=== PATIENT | female | born 1960 | race Caucasian/White ===

== ENCOUNTER 2017-01-02 13:56 | Emergency (ER) | payer OTHER ==
[~2017-01-02] VITALS: Ht 167.6 cm; Wt 81.7 kg
[~2017-01-02 13:56] MED LIST: ARIP1TAB46 PO; PROM25SU8 PO; PROZ20CA11 PO; RANI150 PO; SUCR1TAB PO
[2017-01-02 13:58] VITALS: BP_DIAS 159; PULSE 96; RESP 16; TEMP 98.8; O2SAT 99
[2017-01-02] MEDS ORDERED: ABIL5TAB6 PO (14:14)
[2017-01-02] MEDS ORDERED: PROZ40CA PO (14:14)
[2017-01-02] MEDS ORDERED: ADDE30TA PO (14:14)
[2017-01-02] MEDS ORDERED: LORA-474 PO (14:14)
[2017-01-02 14:26] LABS: BLOOD, URINE LARGE (NEG); KETONE, URINE NEG (NEG); NITRITE,URINE NEG (NEG)
--- NOTE | 2017-01-02 14:29 | PD ---
HPI Chief Complaint: Complaint Time Seen by Provider: 14:15 Travel History International Travel<30 days: No Contact w/Intl Traveler<30days: No Traveled to known affect area: No History of Present Illness HPI 56-year-old female presents to the emergency room for evaluation of 2 separate complaints. First complaint is tailbone pain that has been ongoing for the past 4 days. Tailbone pain started after she slammed her tailbone into the sink faucet while having sex. Since then she has had extreme pain worse with ambulation and sitting. Pain has made it difficult for her to perform activities of daily living. She has been taking Tylenol without significant relief. She denies radiation or paresthesias. Second complaint is dysuria, urgency, and frequency for the past week. Patient states at first she thought it was a yeast infection and was trying over-the- counter medications but it was not relieving her symptoms. She denies any vaginal discharge. She reports excruciating pain during urination. Reports chills and nausea. Denies fever, flank pain, and vomiting. She has not been doing anything for the symptoms. Denies chronic medical conditions. Takes medication for depression. COUNT INCLUDES THE [facility] Past Medical History ADD: Yes Asthma: No Blood Disorders: No Depression: Yes Heart Rhythm Problems: No Cancer: No Cardiovascular Problems: No High Cholesterol: Yes Chest Pain: No Congestive Heart Failure: No COPD: No Diabetes: No Endocrine: No Gastrointestinal Disorders: Yes Genitourinary: Yes Hypertension: No Immune Disorder: No Musculoskeletal: Yes (chronic back pain) Neurologic: No Psychiatric: Yes Respiratory: No Integumentary: Yes (ACME) Sleep Apnea: No Thyroid Disease: No ?: Not Past Surgical History Section: Yes Gynecologic Surgery: Yes (partial hysterectomy 2002) Hysterectomy: Yes Other Surgery: Yes (CEASARN,PARTIAL HYTERECTOMY, LAMI) Social History Alcohol Use: Yes (OCCASSIONAL) Tobacco Use: Yes (1 PPD ) Substance Use: Yes Allergies-Medications (Allergen,Severity, Reaction): Coded Allergies: Cipro (Verified Allergy, Severe, Hives, 01/02/17) Penicillin (Verified Allergy, Mild, 01/02/17) PT DOESNT REALLY HAVE REACTION/GETS YEAST INFECTION,NEED TO DELETE Codeine (Verified Adverse Reaction, Severe, Nausea/Vomiting, 01/02/17) Reported Meds & Prescriptions Reported Meds & Active Scripts Active Macrobid (Nitrofurantoin Monoh/Nitrofur Macro) 100 Mg Cap 100 Mg PO BID 7 Days Reported Ativan (Lorazepam) 1 Mg Tab 1 Mg PO DAILY PRN Abilify (Aripiprazole) 5 Mg Tab 5 Mg PO DAILY Adderall (Amphetamine-Dextroamphetamine) 30 Mg Tab 30 Mg PO DAILY Avoid late evening doses. Space doses at least 4 to 6 hours if more than once/day dosing. Prozac (Fluoxetine HCl) 40 Mg Cap 40 Mg PO DAILY Review of Systems Except as stated in HPI: all other systems reviewed are Neg Physical Exam Narrative GENERAL: Well-nourished, obese female in no acute distress. Afebrile. Ambulatory. SKIN: Focused skin assessment warm/dry. No erythema or ecchymosis. HEAD: Normocephalic. EYES: No scleral icterus. No injection or drainage. NECK: Supple, trachea midline. No JVD or lymphadenopathy. CARDIOVASCULAR: Regular rate and rhythm without murmurs, gallops, or rubs. RESPIRATORY: Breath sounds equal bilaterally. No accessory muscle use. GASTROINTESTINAL: Abdomen soft, non-tender, nondistended. No pelvic tenderness. No CVA tenderness. BACK: No rash. There is moderate tenderness on palpation of the coccyx. No obvious deformity. Data Data Last Documented VS Vital Signs Date Time Temp Pulse Resp B/P Pulse Ox O2 Delivery O2 Flow Rate FiO2 01/02/17 13:58 98.8 96 16 /159 99 Orders Urinalysis - C+S If Indicated (01/02/17 14:05) Ketorolac Inj (Toradol Inj) (01/02/17 15:00) Urine Culture (01/02/17 14:15) Labs Laboratory Tests Test 01/02/17 14:15 Urine Collection Type CLEAN CATCH Urine Color YELLOW Urine Turbidity CLOUDY Urine pH 6.0 Urine Specific Aubrey GREATER THAN 1.035 Urine Protein TRACE mg/dL Urine Glucose (UA) 1000 OR GREATER mg/dL Urine Ketones NEG mg/dL Urine Occult Blood LARGE Urine Nitrite NEG Urine Bilirubin NEG Urine Leukocyte Esterase SMALL Urine WBC INNUM /hpf Urine WBC Clumps FEW Urine Squamous Epithelial 0-3 /hpf Cells Urine Bacteria FEW /hpf Microscopic Urinalysis Comment CULTURE INDICATED MDM Medical Decision Making Medical Screen Exam Complete: Yes Emergency Medical Condition: Yes Medical Record Reviewed: Yes Differential Diagnosis Coxodynia versus fracture versus contusion versus urinary tract infection versus STD Narrative Course 56-year-old female presents to the emergency room for evaluation of 2 complaints. First complaint is coccyx pain for 4 days. Second complaint is dysuria, urgency, and frequency for 1 week. There is tenderness to palpation of the coccyx but no obvious deformity, edema, or ecchymosis. Patient was informed that x-rays will not change the treatment and agreed to proceed without them. She was given Toradol for pain. She has no abdominal pain, pelvic tenderness, or CVA tenderness. Vital signs stable. UA shows evidence of urinary tract infection. Patient discharged with Macrobid and Pyridium. Told to follow-up the primary care physician or return for worsening symptoms. She understands and agrees to plan. Diagnosis Primary Impression: Urinary tract infection Qualified Code: N30.01 - Acute cystitis with hematuria Additional Impression: Coccydynia Referrals: Primary Care Physician Patient Instructions: Coccyx Injury (ED), General Instructions, Urinary Tract Infection in Children (ED) Additional Instructions: Rest and drink plenty of fluids. Take Macrobid as directed, until gone. Take Pyridium as directed, as needed. Take ibuprofen with food as directed, as needed for pain. Apply ice to the affected area for 20 minutes at a time, as needed for pain and swelling. Sit on a donut pillow. Follow-up with a primary care physician. Return to the emergency room for worsening symptoms. Med/Other Pt SpecificInfo: Prescription(s) given Scripts Nitrofurantoin Monohydrate Macrocrystals (Macrobid)100 Mg [id number] Mg PO BID 7 Days Ref 0 Prov:Ag Orourke MD 01/02/17 Disposition: 01 DISCHARGE HOME Condition: Stable Layla Crespo Jan 02, 2017 14:29 Layla Crespo Jan 02, 2017 14:29
[2017-01-02 15:00] LABS: GLUCOSE,URINE 1000 OR GREATER mg/dL (NEG)
[2017-01-02] MEDS ORDERED: KETOROLAC TROMETHAMINE 60 MG/2 ML (IM) VIAL IM ONE (15:00)
[2017-01-02 15:02] LABS: METHOD OF COLLECTION CLEAN CATCH; URINE COLOR YELLOW (YELLW/STRAW)
[2017-01-02 15:03] LABS: BACTERIA, URINE FEW /hpf; COMMENT (UR) CULTURE INDICATED; CULTURE IF INDICATED CULTURE INDICATED; SQUAMOUS EPITHELIAL CELL URINE 0-3 /hpf (0-5); WBC, URINE INNUM /hpf (0-5)
[2017-01-02] MEDS ORDERED: MACR100C2 PO (15:09)
[2017-01-02] MEDS ORDERED: PHEN0.4T PO (15:13)
== END 2017-01-02 15:22 | disposition home or self-care (01) ==
LOC: PHEFT 13:56
DX: N30.01 Acute cystitis with hematuria (principal); M53.3 Sacrococcygeal disorders, not elsewhere classified; E78.00 Pure hypercholesterolemia, unspecified; F17.210 Nicotine dependence, cigarettes, uncomplicated; W22.8XXA Striking against or struck by other objects, initial encounter; Y93.89 Activity, other specified; Y92.9 Unspecified place or not applicable; Y99.8 Other external cause status; B96.20 Unspecified Escherichia coli [E. coli] as the cause of diseases classified elsewhere
CPT/HCPCS: 81001; 87077; 87086; 87186; 96372; 99284; J1885

== ENCOUNTER 2017-01-23 18:58 | Emergency (ER) | payer OTHER ==
[~2017-01-23] VITALS: Ht 167.6 cm; Wt 78.0 kg
[~2017-01-23 18:58] MED LIST changes: +ABIL5TAB6 PO; +ADDE30TA PO; -ARIP1TAB46 PO; +LORA-474 PO; +MACR100C2 PO; +PHEN0.4T PO; -PROM25SU8 PO; -PROZ20CA11 PO; +PROZ40CA PO; -RANI150 PO; -SUCR1TAB PO
[2017-01-23 19:00] VITALS: BP 125/64; PULSE 109; RESP 16; TEMP 98.8; O2SAT 97
--- NOTE | 2017-01-23 19:32 | PD ---
Physical Exam Date Seen by Provider: Jan 23, 2017 Time Seen by Provider: 19:30 Narrative 56 yo female here for possible "spider bite". has had it for 3 days. Started as itchy, since yesterday painful and red and swollen. No drainage. pain to touch. 10. Not taken anything for this. Wound is on the right lower leg. Vitals are stable. Awaiting bed placement. Data Data Last Documented VS Vital Signs Date Time Temp Pulse Resp B/P Pulse Ox O2 Delivery O2 Flow Rate FiO2 01/23/17 19:00 98.8 109 16 125/64 97 Room Air [facility] Medical Record Reviewed: Yes Supervised Visit with SHANNAN: No Jerod Ellison Jan 23, 2017 19:32
[2017-01-23] MEDS ORDERED: CLIN1CAP5 PO (19:45)
[2017-01-23] MEDS ORDERED: MUPI2OIN TOPICAL (19:45)
--- NOTE | 2017-01-23 19:45 | PD ---
HPI Chief Complaint: Bite or Sting Time Seen by Provider: 19:39 Travel History International Travel<30 days: No Contact w/Intl Traveler<30days: No Traveled to known affect area: No History of Present Illness HPI Patient's 56-year-old female presenting to emergency for evaluation of right lower leg infection. Patient believes she was bitten by something 3 days ago, it started out as an itchy area, progressively getting more red with a central darkened area. Patient states is warm, tender to the touch. She denies any fevers, chills, nausea, vomiting. PFSH Past Medical History ADD: Yes Asthma: No Blood Disorders: No Depression: Yes Heart Rhythm Problems: No Cancer: No Cardiovascular Problems: No High Cholesterol: Yes Chest Pain: No Congestive Heart Failure: No COPD: No Diabetes: No Endocrine: No Gastrointestinal Disorders: Yes Genitourinary: Yes Hypertension: No Immune Disorder: No Musculoskeletal: Yes (chronic back pain) Neurologic: No Psychiatric: Yes Respiratory: No Integumentary: Yes (ACME) Sleep Apnea: No Thyroid Disease: No Past Surgical History Section: Yes Gynecologic Surgery: Yes (partial hysterectomy 2002) Hysterectomy: Yes Other Surgery: Yes (CEASARN,PARTIAL HYTERECTOMY, LAMI) Social History Alcohol Use: Yes (OCCASSIONAL) Tobacco Use: Yes (1 PPD ) Substance Use: Yes Allergies-Medications (Allergen,Severity, Reaction): Coded Allergies: Cipro (Verified Allergy, Severe, Hives, 01/23/17) Penicillin (Verified Allergy, Mild, 01/23/17) PT DOESNT REALLY HAVE REACTION/GETS YEAST INFECTION,NEED TO DELETE Codeine (Verified Adverse Reaction, Severe, Nausea/Vomiting, 01/23/17) Reported Meds & Prescriptions Reported Meds & Active Scripts Active Pyridium (Phenazopyridine HCl) 100 Mg Tab 100 Mg PO Q8H PRN Macrobid (Nitrofurantoin Monoh/Nitrofur Macro) 100 Mg Cap 100 Mg PO BID 7 Days Reported Ativan (Lorazepam) 1 Mg Tab 1 Mg PO DAILY PRN Abilify (Aripiprazole) 5 Mg Tab 5 Mg PO DAILY Adderall (Amphetamine-Dextroamphetamine) 30 Mg Tab 30 Mg PO DAILY Avoid late evening doses. Space doses at least 4 to 6 hours if more than once/day dosing. Prozac (Fluoxetine HCl) 40 Mg Cap 40 Mg PO DAILY Review of Systems Except as stated in HPI: all other systems reviewed are Neg Skin: Positive Change in Pigmentation, Positive Lesions Physical Exam Narrative GENERAL: Well-nourished, well-developed patient. SKIN: Focused skin assessment warm/dry. 7 cm x 5 cm area of induration surrounding to right lower leg just distal to the knee. Nonfluctuant, tender to palpation. Scant serous drainage noted from a small less than 2 mm ulceration in the center of the erythema. HEAD: Normocephalic. EYES: No scleral icterus. No injection or drainage. NECK: Supple, trachea midline. No JVD or lymphadenopathy. CARDIOVASCULAR: Regular rate and rhythm without murmurs, gallops, or rubs. RESPIRATORY: Breath sounds equal bilaterally. No accessory muscle use. GASTROINTESTINAL: Abdomen soft, non-tender, nondistended. MUSCULOSKELETAL: No cyanosis, or edema. BACK: Nontender without obvious deformity. No CVA tenderness. Data Data Last Documented VS Vital Signs Date Time Temp Pulse Resp B/P Pulse Ox O2 Delivery O2 Flow Rate FiO2 01/23/17 19:00 98.8 109 16 125/64 97 Room Air Orders Wound Culture And Gram Stain (01/23/17 19:38) MDM Medical Decision Making Medical Screen Exam Complete: Yes Emergency Medical Condition: Yes Interpretation(s) Vital Signs Date Time Temp Pulse Resp B/P Pulse Ox O2 Delivery O2 Flow Rate FiO2 01/23/17 19:00 98.8 109 16 125/64 97 Room Air Differential Diagnosis Bite versus sting versus cellulitis versus abscess versus other Narrative Course Patient is a 56-year-old female presenting with 3 days of right lower leg skin infection. Physical examination appears consistent with cellulitis, area is nonfluctuant, an incision and drainage is not indicated at this time. Patient is neurovascularly intact. Patient was advised to apply mupirocin ointment twice daily, clean with soap and water and cover with a dry dressing. She is advised to take antibiotics as directed. She was advised that if symptoms persisted or worsen despite being on antibiotic therapy she needed to return to emergency department immediately for reevaluation. Additionally she was advised to follow-up with her primary doctor. Wound culture obtained. Patient was advised that if antibiotic therapy needed to be tailored that she would be notified. Patient verbalized understanding of these instructions. Patient is stable for discharge. Diagnosis Primary Impression: Cellulitis, leg Qualified Code: L03.115 - Cellulitis of right lower extremity Referrals: Primary Care Physician 2 days Patient Instructions: Cellulitis (ED), General Instructions Additional Instructions: Apply mupirocin ointment twice daily and cover with dry dressing. You may wash with soap and water. Complete full course of antibiotics as prescribed Return to emergency department immediately for any new or worsening symptoms Med/Other Pt SpecificInfo: Prescription(s) given Scripts Mupirocin Topical 2 % Oint1 Applic TOPICAL BID #22 GM Ref 0 Prov:Maira Charles 01/23/17 Clindamycin 150 Mg [id number] Mg PO Q8HR 10 Days Ref 0 Prov:Maira Charles 01/23/17 Disposition: 01 DISCHARGE HOME Condition: Stable Maira Charles Jan 23, 2017 19:45
== END 2017-01-23 20:14 | disposition home or self-care (01) ==
LOC: NEPK 18:58
DX: L03.115 Cellulitis of right lower limb (principal); B95.62 Methicillin resistant Staphylococcus aureus infection as the cause of diseases classified elsewhere
CPT/HCPCS: 86403; 87070; 87186; 87205; 99284

== ENCOUNTER 2017-02-03 12:00 | Emergency (ER) | payer OTHER ==
[~2017-02-03] VITALS: Ht 167.6 cm; Wt 80.0 kg
[~2017-02-03 12:00] MED LIST changes: +CLIN1CAP5 PO; +MUPI2OIN TOPICAL
[2017-02-03 12:02] VITALS: BP 126/60; PULSE 98; RESP 16; TEMP 98.5; O2SAT 96
[2017-02-03] MEDS ORDERED: ARIP1TAB5 PO (12:33)
[2017-02-03] MEDS ORDERED: TETANUS/DIPHTHERIA TOXOID ADULT 0.5 ML VIAL IM ONE (12:45)
[2017-02-03] MEDS ORDERED: VANCOMYCIN INJ 1,200 MG in SODIUM CHLOR 0.9% 250 ML INJ 250 ML IV ONE (12:45)
--- NOTE | 2017-02-03 13:30 | PD ---
HPI Chief Complaint: Wound/Suture/Staple Re-Check Time Seen by Provider: 12:21 Travel History International Travel<30 days: No Contact w/Intl Traveler<30days: No Traveled to known affect area: No History of Present Illness HPI Patient is a 56-year-old female who presents to emergency room for evaluation of right leg infection. Patient reports that she was seen in the emergency room 2 weeks ago as she thinks that she was bit by a bug. Patient reports that she was started on clindamycin but was calls a few days later after cultures are resulted for Staphylococcus aureus, resistant to clindamycin. Patient was apparently started on Bactrim, reports that she took 7 days of the antibiotic and completed her course of antibiotics yesterday. She reports that she woke up this morning he noticed increased drainage and redness to her infection in her right leg. Patient denies any fevers or chills, reports that her tetanus is not up-to-date. Patient is here for reevaluation of leg wound PFSH Past Medical History ADD: Yes Asthma: No Blood Disorders: No Depression: Yes Heart Rhythm Problems: No Cancer: No Cardiovascular Problems: No High Cholesterol: Yes Chest Pain: No Congestive Heart Failure: No COPD: No Diabetes: No Diminished Hearing: No Endocrine: No Gastrointestinal Disorders: Yes Genitourinary: Yes Hypertension: No Immune Disorder: No Musculoskeletal: Yes (chronic back pain) Neurologic: No Psychiatric: Yes Respiratory: No Integumentary: Yes (ACME) Sleep Apnea: No Thyroid Disease: No Tetanus Vaccination: Unknown Influenza Vaccination: No ?: Not Past Surgical History Section: Yes Gynecologic Surgery: Yes (partial hysterectomy 2002) Hysterectomy: Yes Other Surgery: Yes (CEASARN,PARTIAL HYTERECTOMY, LAMI) Social History Alcohol Use: Yes (OCCASSIONAL) Tobacco Use: Yes (1 PPD ) Substance Use: Yes Allergies-Medications (Allergen,Severity, Reaction): Coded Allergies: Cipro (Verified Allergy, Severe, Hives, 02/03/17) Penicillin (Verified Allergy, Mild, 02/03/17) PT DOESNT REALLY HAVE REACTION/GETS YEAST INFECTION,NEED TO DELETE Codeine (Verified Adverse Reaction, Severe, Nausea/Vomiting, 02/03/17) Reported Meds & Prescriptions Reported Meds & Active Scripts Active Mupirocin Topical (Mupirocin) 2 % Oint 1 Applic TOPICAL BID Reported Abilify (Aripiprazole) 10 Mg Tab 10 Mg PO DAILY Ativan (Lorazepam) 1 Mg Tab 1 Mg PO DAILY PRN Adderall (Amphetamine-Dextroamphetamine) 30 Mg Tab 30 Mg PO DAILY Avoid late evening doses. Space doses at least 4 to 6 hours if more than once/day dosing. Prozac (Fluoxetine HCl) 40 Mg Cap 40 Mg PO DAILY Review of Systems General / Constitutional: No: Fever, Chills Eyes: No: Visual changes HENT: No: Headaches Cardiovascular: No: Chest Pain or Discomfort Respiratory: No: Shortness of Breath Gastrointestinal: No: Abdominal Pain Genitourinary: No: Dysuria Musculoskeletal: No: Pain Skin: Positive Rash Neurologic: No: Weakness Psychiatric: No: Depression Endocrine: No: Polydipsia Hematologic/Lymphatic: No: Easy Bruising Physical Exam Narrative GENERAL: mild distress SKIN: Focused skin assessment warm/dry. HEAD: Atraumatic. Normocephalic. EYES: Pupils equal and round. No scleral icterus. No injection or drainage. ENT: No nasal bleeding or discharge. Mucous membranes pink and moist. NECK: Trachea midline. No JVD. CARDIOVASCULAR: Regular rate and rhythm. No murmur appreciated. RESPIRATORY: No accessory muscle use. Clear to auscultation. Breath sounds equal bilaterally. GASTROINTESTINAL: Abdomen soft, non-tender, nondistended. Hepatic and splenic margins not palpable. MUSCULOSKELETAL: No obvious deformities. No clubbing. No cyanosis. Patient with a 7cm x 7cm abscess with cellulitis to right anterior mandel, pulses intact, neurovascularly intact NEUROLOGICAL: Awake and alert. No obvious cranial nerve deficits. Motor grossly within normal limits. Normal speech. PSYCHIATRIC: Appropriate mood and affect; insight and judgment normal. Data Data Last Documented VS Vital Signs Date Time Temp Pulse Resp B/P Pulse Ox O2 Delivery O2 Flow Rate FiO2 02/03/17 12:02 98.5 98 16 126/60 96 Orders Complete Blood Count With Diff (02/03/17 12:35) Comprehensive Metabolic Panel (02/03/17 12:35) Prothrombin Time / Inr (Pt) (02/03/17 12:35) Act Partial Throm Time (Ptt) (02/03/17 12:35) Blood Culture (02/03/17 12:35) Vancomycin Inj (Vancomycin Inj) (02/03/17 12:45) Tetanus/Diphtheria Tox Adult (Tetanus/Di (02/03/17 12:45) Labs Laboratory Tests Test 02/03/17 13:10 White Blood Count 12.9 TH/MM3 Red Blood Count 5.26 MIL/MM3 Hemoglobin 14.4 GM/DL Hematocrit 44.7 % Mean Corpuscular Volume 85.0 FL Mean Corpuscular Hemoglobin 27.4 PG Mean Corpuscular Hemoglobin 32.2 % Concent Red Cell Distribution Width 14.7 % Platelet Count 386 TH/MM3 Mean Platelet Volume 8.8 FL Neutrophils (%) (Auto) 75.2 % Lymphocytes (%) (Auto) 15.2 % Monocytes (%) (Auto) 5.7 % Eosinophils (%) (Auto) 3.4 % Basophils (%) (Auto) 0.5 % Neutrophils # (Auto) 9.7 TH/MM3 Lymphocytes # (Auto) 2.0 TH/MM3 Monocytes # (Auto) 0.7 TH/MM3 Eosinophils # (Auto) 0.4 TH/MM3 Basophils # (Auto) 0.1 TH/MM3 CBC Comment DIFF FINAL Differential Comment Prothrombin Time 10.0 SEC Prothromb Time International 0.9 RATIO Ratio Activated Partial 28.7 SEC Thromboplast Time Sodium Level 133 MEQ/L Potassium Level 4.7 MEQ/L Chloride Level 99 MEQ/L Carbon Dioxide Level 26.2 MEQ/L Anion Gap 8 MEQ/L Blood Urea Nitrogen 11 MG/DL Creatinine 0.80 MG/DL Estimat Glomerular Filtration 75 ML/MIN Rate Random Glucose 318 MG/DL Calcium Level 9.6 MG/DL Total Bilirubin 0.4 MG/DL Aspartate Amino Transf 26 U/L (AST/SGOT) Alanine Aminotransferase 39 U/L (ALT/SGPT) Alkaline Phosphatase 207 U/L Total Protein 7.5 GM/DL Albumin 3.3 GM/DL MDM Medical Decision Making Medical Screen Exam Complete: Yes Emergency Medical Condition: Yes Interpretation(s) Vital Signs Date Time Temp Pulse Resp B/P Pulse Ox O2 Delivery O2 Flow Rate FiO2 02/03/17 12:02 98.5 98 16 126/60 96 Differential Diagnosis Differential includes cellulitis with abscess, failed outpatient treatment Narrative Course 56-year-old female who returns to emergency room with complaints of abscess and cellulitis to her right mandel which was recently treated with clindamycin and last year with Bactrim. Patient reports that she was called about a week ago and was told that she is growing Staphylococcus aureus out of her leg wounds, she was changed from clindamycin to Bactrim, and days of antibiotic treatment, last dose of antibiotics was yesterday. Patient reports that she woke this morning with increased drainage and redness to her right leg wound. Patient with no fevers or chills, tetanus is not up-to-date, plan to update tetanus today. I did review patient's wound culture, patient is sensitive to vancomycin, Rocephin, Levaquin. I did offer patient admission to the hospital for failed outpatient treatment of leg wound (abscess with cellulitis), patient declines admission at this time and request to try different antibiotic prior to admission to the hospital. Plan to give a dose of IV antibiotics while in the emergency room, ultimately will discharge patient home with Levaquin Vital Signs Date Time Temp Pulse Resp B/P Pulse Ox O2 Delivery O2 Flow Rate FiO2 02/03/17 12:02 98.5 98 16 126/60 96 Laboratory Tests Test 02/03/17 13:10 White Blood Count 12.9 TH/MM3 (4.0-11.0) Red Blood Count 5.26 MIL/MM3 (4.00-5.30) Hemoglobin 14.4 GM/DL (11.6-15.3) Hematocrit 44.7 % (35.0-46.0) Mean Corpuscular Volume 85.0 FL (80.0-100.0) Mean Corpuscular Hemoglobin 27.4 PG (27.0-34.0) Mean Corpuscular Hemoglobin 32.2 % Concent (32.0-36.0) Red Cell Distribution Width 14.7 % (11.6-17.2) Platelet Count 386 TH/MM3 (150-450) Mean Platelet Volume 8.8 FL (7.0-11.0) Neutrophils (%) (Auto) 75.2 % (16.0-70.0) Lymphocytes (%) (Auto) 15.2 % (9.0-44.0) Monocytes (%) (Auto) 5.7 % (0.0-8.0) Eosinophils (%) (Auto) 3.4 % (0.0-4.0) Basophils (%) (Auto) 0.5 % (0.0-2.0) Neutrophils # (Auto) 9.7 TH/MM3 (1.8-7.7) Lymphocytes # (Auto) 2.0 TH/MM3 (1.0-4.8) Monocytes # (Auto) 0.7 TH/MM3 (0-0.9) Eosinophils # (Auto) 0.4 TH/MM3 (0-0.4) Basophils # (Auto) 0.1 TH/MM3 (0-0.2) CBC Comment DIFF FINAL Differential Comment Prothrombin Time 10.0 SEC (9.8-11.6) Prothromb Time International 0.9 RATIO Ratio Activated Partial 28.7 SEC Thromboplast Time (24.3-30.1) Sodium Level 133 MEQ/L (136-145) Potassium Level 4.7 MEQ/L (3.5-5.1) Chloride Level 99 MEQ/L (98-107) Carbon Dioxide Level 26.2 MEQ/L (21.0-32.0) Anion Gap 8 MEQ/L (5-15) Blood Urea Nitrogen 11 MG/DL (7-18) Creatinine 0.80 MG/DL (0.50-1.00) Estimat Glomerular Filtration 75 ML/MIN (>89) Rate Random Glucose 318 MG/DL (74-106) Calcium Level 9.6 MG/DL (8.5-10.1) Total Bilirubin 0.4 MG/DL (0.2-1.0) Aspartate Amino Transf 26 U/L (15-37) (AST/SGOT) Alanine Aminotransferase 39 U/L (10-53) (ALT/SGPT) Alkaline Phosphatase 207 U/L (45-117) Total Protein 7.5 GM/DL (6.4-8.2) Albumin 3.3 GM/DL (3.4-5.0) wbc: 12.9, hgb 14.4, hct 44.7, platelets 386 sodium 133, chloride 99, potassium 4.7, bun 11, creatinine 0.8 glucose: 318 patient bs 318 - pt is not a diabetic, i did review my concerns that patient may be heading to a diagnosis of diabetes. Patient reports that she follow-up with her primary care doctor 2 weeks ago, that she is currently pending labs including a hemoglobin A1c. I did discuss with patient in detail that she should stay in the hospital for admission she failed outpatient treatment for abscess with cellulitis, patient refuses admission today and reports "I will come back in 48 hours for re-evaluation." She will also call her doctor for follow up on her blood sugars as her BS was high today. Signs and symptoms of when to return to ER was reviewed with patient in detail. Diagnosis Primary Impression: Cellulitis, leg Qualified Code: L03.116 - Cellulitis of left lower extremity Additional Impressions: Abscess of leg, left Hyperglycemia Patient Instructions: General Instructions Additional Instructions: Please provide patient with a copy of her lab work at discharge Please return to ER in 48 hours for re-evaluation Return to ER if symptoms worsen or progress or if you develop fever/chills Please follow up with your primary care doctor as soon as possible Your tetanus was updated today Please monitor blood sugar carefully as your blood sugar was elevated today ( blood sugar 318) Return to ER in 48 hours for re-evaluation of your leg wound Med/Other Pt SpecificInfo: Prescription(s) given, Wound Care Scripts Levofloxacin (Levaquin)750 Mg [id number] Mg PO DAILY #7 Prov:Ivette William DO 02/03/17 Disposition: 01 DISCHARGE HOME Condition: Stable Ivette William DO Feb 03, 2017 13:30
[2017-02-03 13:39] LABS: AUTOMATED NEUTROPHIL # 9.7 TH/MM3 (1.8-7.7); BASOPHIL # 0.1 TH/MM3 (0-0.2); BASOPHIL % 0.5 % (0.0-2.0); EOSINOPHIL # 0.4 TH/MM3 (0-0.4); EOSINOPHIL % 3.4 % (0.0-4.0); HEMATOCRIT 44.7 % (35.0-46.0); HEMO FLAGS DIFF FINAL; LYMPH % 15.2 % (9.0-44.0); MEAN CORPUSCULAR HEMOGLOBIN 27.4 PG (27.0-34.0); MEAN CORPUSCULAR HGB CONC 32.2 % (32.0-36.0); MONO % 5.7 % (0.0-8.0); NEUT % 75.2 % (16.0-70.0); PLATELET COUNT 386 TH/MM3 (150-450); RED BLOOD COUNT 5.26 MIL/MM3 (4.00-5.30); RED CELL DISTRIBUTION WIDTH 14.7 % (11.6-17.2); WHITE BLOOD COUNT 12.9 TH/MM3 (4.0-11.0)
[2017-02-03 13:48] LABS: APTT (PATIENT) 28.7 SEC (24.3-30.1); INTERNATIONAL NORMALIZED RATIO 0.9 RATIO
[2017-02-03 14:12] LABS: ALT (GPT) 39 U/L (10-53)
[2017-02-03 14:14] LABS: ALKALINE PHOSPHATASE 207 U/L (45-117); TOTAL BILIRUBIN ADULT 0.4 MG/DL (0.2-1.0)
[2017-02-03 14:19] LABS: ANION GAP 8 MEQ/L (5-15); AST (GOT) 26 U/L (15-37); BICARBONATE 26.2 MEQ/L (21.0-32.0); CHLORIDE 99 MEQ/L (98-107); GLOMERULAR FILTRATION RATE 75 ML/MIN (>89); POTASSIUM 4.7 MEQ/L (3.5-5.1); SODIUM (NA) 133 MEQ/L (136-145)
[2017-02-03 14:23] LABS: BLOOD UREA NITROGEN 11 MG/DL (7-18)
[2017-02-03] MEDS ORDERED: SODIUM CHLOR 0.9% 1000 ML INJ 1,000 ML IV ONE (15:00)
[2017-02-03] MEDS ORDERED: LEVA750T9 PO (15:00)
== END 2017-02-03 15:57 | disposition home or self-care (01) ==
LOC: NEPD 12:00
DX: L03.116 Cellulitis of left lower limb (principal); L02.416 Cutaneous abscess of left lower limb; R73.9 Hyperglycemia, unspecified; F17.210 Nicotine dependence, cigarettes, uncomplicated; E78.00 Pure hypercholesterolemia, unspecified
CPT/HCPCS: 80053; 85025; 85610; 85730; 87040; 90471; 90714; 96374; 99284; J3370; J7030; J7050

== ENCOUNTER 2017-04-18 21:07 | Emergency (ER) | payer OTHER ==
[~2017-04-18] VITALS: Ht 167.6 cm; Wt 76.0 kg
[~2017-04-18 21:07] MED LIST changes: -ABIL5TAB6 PO; +ARIP1TAB5 PO; -CLIN1CAP5 PO; +LEVA750T9 PO; -MACR100C2 PO; -PHEN0.4T PO
[2017-04-18 21:09] VITALS: BP 124/59; PULSE 110; RESP 15; TEMP 99.1; O2SAT 100
--- NOTE | 2017-04-18 21:51 | PD ---
Physical Exam Date Seen by Provider: Apr 18, 2017 Time Seen by Provider: 21:49 Narrative 56-year-old white female presents to emergency department with possible UTI. She states over the past week she's had increased urinary frequency and white vaginal discharge. She denies any fever or chills. No back pain. Patient denies any pain. Vital signs reviewed. Awaiting bed placement. Data Data Last Documented VS Vital Signs Date Time Temp Pulse Resp B/P (MAP) Pulse Ox O2 Delivery O2 Flow Rate FiO2 04/18/17 21:09 99.1 110 15 124/59 (80) 100 Room Air [facility] Medical Record Reviewed: No Supervised Visit with SHANNAN: Donavon Brown Apr 18, 2017 21:51
[2017-04-18] MEDS ORDERED: ROSU10 PO (23:00)
[2017-04-18] MEDS ORDERED: METF500T PO (23:00)
[2017-04-18 23:11] LABS: BACTERIA, URINE RARE /hpf; BLOOD, URINE MOD (NEG); CALCIUM OXALATE CRYSTALS,URINE MANY /hpf; COMMENT (UR) CULTURE INDICATED; CULTURE IF INDICATED CULTURE INDICATED; GLUCOSE,URINE NEG (NEG); HYALINE CAST, URINE 6 /lpf (RARE); KETONE, URINE TRACE mg/dL (NEG); MUCUS URINE FEW /lpf (OCC); NITRITE,URINE NEG (NEG); PH, URINE 5.5 (5.0-8.5); SQUAMOUS EPITHELIAL CELL URINE <1 /hpf (0-5); URINE COLOR YELLOW (YELLW/STRAW)
--- NOTE | 2017-04-18 23:26 | PD ---
HPI Chief Complaint: Complaint Time Seen by Provider: 23:16 Travel History International Travel<30 days: No Contact w/Intl Traveler<30days: No Traveled to known affect area: No History of Present Illness HPI patient 56-year-old female with dysuria and vaginal discharge White for the past week, gradually worsening. She is told she had urinary tract infections in the past. She is unclear as to whether or not her discomfort is coming from vagina or urethra. No abdominal pain no fevers no nausea vomiting. Symptoms are mild and gradually worsening. PFSH Past Medical History ADD: Yes Asthma: No Blood Disorders: No Depression: Yes Heart Rhythm Problems: No Cancer: No Cardiovascular Problems: No High Cholesterol: Yes Chest Pain: No Congestive Heart Failure: No COPD: No Diabetes: Yes Patient Takes Glucophage: No Diminished Hearing: No Endocrine: No Gastrointestinal Disorders: Yes Genitourinary: Yes Hypertension: No Immune Disorder: No Musculoskeletal: Yes (chronic back pain) Neurologic: No Psychiatric: Yes Respiratory: No Integumentary: Yes (ACME) Sleep Apnea: No Thyroid Disease: No Tetanus Vaccination: < 5 Years Influenza Vaccination: No ?: Not : 6 Para: 2 Miscarriage: 2 : 2 Past Surgical History Section: Yes Gynecologic Surgery: Yes (partial hysterectomy 2002) Hysterectomy: Yes (partial 1996) Other Surgery: Yes (CEASARN,PARTIAL HYTERECTOMY, LAMI) Social History Alcohol Use: Yes (rare) Tobacco Use: Yes (2 packs per day) Substance Use: No Allergies-Medications (Allergen,Severity, Reaction): Coded Allergies: ciprofloxacin (Unverified Allergy, Severe, Hives, 04/18/17) penicillin G (Unverified Allergy, Mild, 04/18/17) PT DOESNT REALLY HAVE REACTION/GETS YEAST INFECTION,NEED TO DELETE codeine (Unverified Adverse Reaction, Severe, Nausea/Vomiting, 04/18/17) Reported Meds & Prescriptions Reported Meds & Active Scripts Active Bactrim DS (Sulfamethoxazole-Trimethoprim) 800-160 Mg Tab 1 Tab PO BID 7 Days Reported Crestor (Rosuvastatin Calcium) 10 Mg Tab 10 Mg PO DAILY Metformin (Metformin HCl) 500 Mg Tab 500 Mg PO BIDPC With meals Abilify (Aripiprazole) 10 Mg Tab 10 Mg PO DAILY Ativan (Lorazepam) 1 Mg Tab 1 Mg PO DAILY PRN Adderall (Amphetamine-Dextroamphetamine) 30 Mg Tab 30 Mg PO DAILY Avoid late evening doses. Space doses at least 4 to 6 hours if more than once/day dosing. Prozac (Fluoxetine HCl) 40 Mg Cap 40 Mg PO DAILY Review of Systems Except as stated in HPI: all other systems reviewed are Neg Physical Exam Narrative GENERAL: Well-nourished, well-developed patient. SKIN: Focused skin assessment warm/dry. HEAD: Normocephalic. EYES: No scleral icterus. No injection or drainage. NECK: Supple, trachea midline. No JVD or lymphadenopathy. CARDIOVASCULAR: Regular rate and rhythm without murmurs, gallops, or rubs. RESPIRATORY: Breath sounds equal bilaterally. No accessory muscle use. GASTROINTESTINAL: Abdomen soft, non-tender, nondistended. GENITOURINARY: No discharge no cervical motion tenderness, no bimanual tenderness, grossly normal external genitalia. Exam was performed with female nurse setter molding and coremaking machines present at all times. MUSCULOSKELETAL: No cyanosis, or edema. BACK: Nontender without obvious deformity. No CVA tenderness. Data Data Last Documented VS Vital Signs Date Time Temp Pulse Resp B/P (MAP) Pulse Ox O2 Delivery O2 Flow Rate FiO2 04/18/17 22:51 20 04/18/17 21:09 99.1 110 124/59 (80) 100 Room Air Orders Orders Urinalysis - C+S If Indicated (04/18/17 21:51) Urine Culture (04/18/17 22:30) Wet Prep Profile (04/18/17 23:18) Gc And Chlamydia Pcr (04/18/17 23:18) Labs Laboratory Tests Test 04/18/17 00:20 04/18/17 22:30 Clue Cells (Wet Prep) NONE SEEN Vaginal Trichomonas (Wet Prep) NONE SEEN Vaginal Yeast (Wet Prep) NONE SEEN Urine Color YELLOW Urine Turbidity HAZY Urine pH 5.5 Urine Specific [place] 1.032 Urine Protein 30 mg/dL Urine Glucose (UA) NEG mg/dL Urine Ketones TRACE mg/dL Urine Occult Blood MOD Urine Nitrite NEG Urine Bilirubin NEG Urine Urobilinogen 2.0 MG/DL Urine Leukocyte Esterase LARGE Urine RBC 28 /hpf Urine WBC 82 /hpf Urine Squamous Epithelial Cells <1 /hpf Urine Calcium Oxalate Crystals MANY /hpf Urine Bacteria RARE /hpf Urine Hyaline Casts 6 /lpf Urine Mucus FEW /lpf Microscopic Urinalysis Comment CULTURE INDICATED MDM Medical Decision Making Medical Screen Exam Complete: Yes Emergency Medical Condition: Yes Differential Diagnosis BV, CVA, STD, UTI. Narrative Course Well appearing female nontoxic in no distress. Wet prep negative, UA positive. GC CT probe sent. Patient was discharged on Bactrim as she has allergies to Cipro penicillin and Keflex. She is stable for discharge. Diagnosis Primary Impression: UTI (urinary tract infection) Qualified Codes: N30.01 - Acute cystitis with hematuria Referrals: [facility]Other Pt SpecificInfo: Prescription(s) given Scripts Sulfamethoxazole-Trimethoprim (Bactrim DS) 800-160 Mg Tab 1 TAB PO BID for Infection for 7 Days, #14 TAB 0 Refills Prov: Jaspreet Crisostomo MD 04/19/17 Disposition: 01 DISCHARGE HOME Condition: Stable Jaspreet Crisostomo MD Apr 18, 2017 23:26
[2017-04-19] MEDS ORDERED: BACT800T5 PO (00:50)
[2017-04-19 02:34] LABS: CHLAMYDIA PCR NOT DETECTED (NOT DETECT); NEISSERIA PCR NOT DETECTED (NOT DETECT)
== END 2017-04-19 01:20 | disposition home or self-care (01) ==
LOC: NEPD 21:07
DX: N30.01 Acute cystitis with hematuria (principal); B96.89 Other specified bacterial agents as the cause of diseases classified elsewhere; F17.200 Nicotine dependence, unspecified, uncomplicated
CPT/HCPCS: 81001; 87086; 87210; 87491; 87591; 99283